=== PATIENT | female | born 1960 | race Caucasian/White ===

== ENCOUNTER 2019-12-15 11:58 | Outpatient (CLI) | payer OTHER | END 2019-12-15 12:00 | disposition home or self-care (01) | LOC: SONOGRAMA 11:58 | DX: C73 Malignant neoplasm of thyroid gland (principal) ==

== ENCOUNTER 2020-12-10 10:44 | Outpatient (CLI) | payer OTHER | END 2020-12-10 11:41 | disposition home or self-care (01) | LOC: SONOGRAMA 10:44 | PROVIDERS: ATTEND Pathology Anatomic Pathology & Clinical Pathology | DX: D11.0 Benign neoplasm of parotid gland (principal); R22.1 Localized swelling, mass and lump, neck ==